=== PATIENT | female | born 1945 | race African-American/Black ===

== ENCOUNTER → 2018-04-28 | Outpatient (CLI) | payer OTHER ==
--- NOTE | 2018-04-28 17:40 | PCVCIMAG ---
EXAM: BILATERAL SUPERFICIAL VENOUS DUPLEX INDICATION: Leg pain and swelling. FINDINGS: Right leg: No thrombus in the common femoral, main femoral, or popliteal veins. These veins are compressible. Right Great Saphenous Vein: At the saphenofemoral junction the diameter is 6.0 mm, in the mid thigh it is 6.0 mm, and in the calf it is 3.7 mm. There is not significant venous insufficiency/reflux throughout. Venous insufficiency/reflux duration is 0 seconds. Right Small Saphenous Vein: At the saphenopopliteal junction the diameter is 4.9 mm, and in the calf it is 4.4 mm. There is not significant venous insufficiency/reflux throughout. Venous insufficiency/reflux duration is 0 seconds. There is not a cranial extension present. Left leg: No thrombus in the common femoral, main femoral, or popliteal veins. These veins are compressible. Left Great Saphenous Vein: At the saphenofemoral junction the diameter is 7.4 mm, in the mid thigh it is 5.0 mm, and in the calf it is 3.7 mm. There is not significant venous insufficiency/reflux throughout. Venous insufficiency/reflux duration is 0 seconds. Left Small Saphenous Vein: At the saphenopopliteal junction the diameter is 3.7 mm, and in the calf it is 3.3 mm. There is not significant venous insufficiency/reflux throughout. Venous insufficiency/reflux duration is 0 seconds. There is not a cranial extension present. IMPRESSION: Right Great Saphenous Vein: No significant venous insufficiency/reflux is present as noted above. Right Small Saphenous Vein: No significant venous insufficiency/reflux is present as noted above. Left Great Saphenous Vein: No significant venous insufficiency/reflux is present as noted above. Left Small Saphenous Vein: No significant venous insufficiency/reflux is present as noted above. LOC:[id number]
== END | disposition home or self-care (01) ==
LOC: PCVCIMAG 12:43
PROVIDERS: ATTEND Family Medicine
DX: I87.2 Venous insufficiency (chronic) (peripheral) (principal); M79.89 Other specified soft tissue disorders
CPT/HCPCS: 93970

== ENCOUNTER → 2018-07-28 | Outpatient (CLI) | payer OTHER ==
--- NOTE | 2018-07-28 15:19 | PCVCIMAG ---
APPROVED REPORT Study performed: 07/28/2018 12:58:53 EXAM: Comprehensive 2D, Doppler, and color-flow Echocardiogram Patient Location: Echo lab Status: routine BSA: 2.14 HR: 75 bpmBP: 126/70 mmHg Rhythm: NSR Other Information Study Quality: Good Risk Factors: Cardiac Risk Factors: Hyperlipidemia, HTN Indications Edema Chonic Diastolic Heart Failure 2D Dimensions IVSd: 9.04 (7-11mm)LVOT Diam: 20.00 (18-24mm) LVDd: 41.52 mm PWd: 10.06 (7-11mm)Ascending Ao: 28.28 (22-36mm) LVDs: 25.89 (25-40mm) Left Atrium: 32.85 (27-40mm) Aortic Root: 23.50 mm LV Single Plane 4CH: 58.63 % LV Single Plane 2CH: 53.94 % Biplane EF: 54.8 % Volumes Left Atrial Volume (Systole) Single Plane 4CH: 43.92 mLSingle Plane 2CH: 61.95 mL LA ESV Index: 26.00 mL/m2 Aortic Valve AoV Peak Blas.: 1.91 m/s AO Peak Gr.: 14.66 mmHgLVOT Max P.50 mmHg LVOT Max V: 1.06 m/s TOLU Vmax: 1.73 cm2 Mitral Valve E/A Ratio: 0.8 MV Decel. Time: 219.47 ms MV E Max Blas.: 0.76 m/s MV A Blas.: 0.99 m/s IVRT: 69.20 ms TDI E/Lateral E': 7.60E/Medial E': 8.44 Medial E' Blas.: 0.09 m/s Lateral E' Blas.: 0.10 m/s Pulmonary Valve PV Peak Blas.: 1.44 m/sPV Peak Gr.: 8.25 mmHg Pulmonary Vein P Vein S: 0.77 m/sP Vein A: 0.31 m/s P Vein D: 0.50 m/sP Vein A Dur.: 107.3 msec P Vein S/D Ratio: 1.54 Tricuspid Valve TR Peak Blas.: 2.55 m/sRAP Estimate: 7.00 mmHg TR Peak Gr.: 25.95 mmHg PA Pressure: 33.00 mmHg Left Ventricle The left ventricle is normal size. There is normal LV segmental wall motion. There is normal left ventricular wall thickness. Left ventricular systolic function is normal. The left ventricular ejection fraction is within the normal range. LVEF is 55-60%. Mild diastolic dysfunction is present (impaired relaxation pattern). Right Ventricle The right ventricle is normal size. The right ventricular systolic function is normal. Atria The left atrium size is normal. The atrial septum is aneurysmal. The right atrium size is normal. Cor triatriatum Aortic Valve The aortic valve is mildly calcified. No aortic regurgitation is present. There is no aortic valvular stenosis. Mitral Valve There is mitral annular calcification. There is no mitral valve regurgitation noted. No evidence of mitral valve stenosis. Tricuspid Valve The tricuspid valve is normal in structure. Trace tricuspid regurgitation. Pulmonary artery pressure is 33 mmHg. Pulmonic Valve The pulmonary valve is normal in structure. Trace pulmonic regurgitation. Great Vessels The aortic root is normal in size. IVC is normal in size and collapses >50% with inspiration. Pericardium There is no pericardial effusion. <Conclusion> Left ventricular systolic function is normal. There is normal LV segmental wall motion. LVEF is 55-60%. Mild diastolic dysfunction The right atrium size is normal; atrial septal aneurysm. Cor triatriatum The aortic valve is mildly calcified. No aortic regurgitation is present. There is mitral annular calcification. No mitral valve regurgitation Trace tricuspid regurgitation. Pulmonary artery pressure is 33 mmHg. There is no pericardial effusion.
== END | disposition home or self-care (01) ==
LOC: PCVCIMAG 12:55
PROVIDERS: ATTEND Internal Medicine
DX: I50.32 Chronic diastolic (congestive) heart failure (principal); R60.0 Localized edema
CPT/HCPCS: 93306

== ENCOUNTER → 2019-02-02 | Outpatient (CLI) | payer OTHER | END | disposition home or self-care (01) | LOC: PCVCCLINIC 15:22 | PROVIDERS: ATTEND Internal Medicine | DX: I11.0 Hypertensive heart disease with heart failure (principal); I50.32 Chronic diastolic (congestive) heart failure; E78.5 Hyperlipidemia, unspecified | CPT/HCPCS: 36415; 80061; 93005; G0463 ==